=== PATIENT | male | born 1945 | race Caucasian/White ===

== ENCOUNTER 2019-03-29 05:48 | Day surgery (SDC) | payer OTHER ==
[~2019-03-29] VITALS: Ht 182.9 cm; Wt 103.4 kg
[~2019-03-29 05:48] MED LIST: APAP W/CODEINE1 TA2 PO; ASPIRIN81 M2 PO; AZITHROMYCIN 2250 MG PO; CELEXA 20 MG TA20 M1; EFFEXOR XR37.5 MG PO; FENOFIBRATE160 MG PO; FENOFIBRATE200 MG PO; HYDROCODON-ACE1 EAC7; LEVAQUIN 500 M500 MG PO; LIPITOR 20 MG T20 M1 PO; METFORMIN HCL500 MG PO; MOBIC15 MG PO; NEXIUM40 MG PO; OMEGA 3-6-9 11200 M1 PO; OMEPRAZOLE 20 M20 MG; PROMETHAZINE D480 ML GT; PROMETHAZINE D480 ML PO; TESSALON PERLE100 M1 PO; TRAMADOL 50 MG50 MG; TYLENOL W/CODEI1 TA2 PO
[2019-03-29 08:00] VITALS: BP 143/79
--- NOTE | 2019-04-02 16:20 | O ---
[facility] [place] [address] OPERATIVE REPORT Name: CRISTINA MULLINS Room #: DEP [facility].#: [id number] Admission: 03/29/19 ������������������ Attend Phys: Mehul Hu MD Discharge: 03/29/19 ������������������ Date of : 43 Report #: [id number] THIS REPORT FOR: //name// CC: Reggie Hu DATE OF SERVICE: 03/29/2019 SURGEON: Mehul Hu MD FITTING ROOM SUPERVISOR: None. PREOPERATIVE DIAGNOSIS: Bilateral lower lid ectropion. POSTOPERATIVE DIAGNOSIS: Bilateral lower lid ectropion. OPERATION PERFORMED: Bilateral lower lid ectropion repair. ANESTHESIA: Local with IV sedation. COMPLICATIONS: None. INDICATIONS FOR PROCEDURE: This patient has bilateral acquired lower lid ectropion with chronic tearing and discharge. The current procedures are undertaken in order to improve the patient's visual function, lacrimal outflow, and level of comfort. Informed consent was obtained to include but not limit to the risk of loss of vision, bleeding, infection, scarring, failure to improve the problem and need for further surgery. DESCRIPTION OF OPERATION: The patient was taken to the operating room where 2% Xylocaine with epinephrine mixed with equal parts of 0.75% Marcaine with Wydase was administered transcutaneously and transconjunctivally to each lower lid and lateral canthal area. The patient was then prepped and draped in the usual sterile fashion. A Rosalina clamp was then used to clamp the left lateral canthus following which a sharp canthotomy and cantholysis were performed. The tarsal strip was prepared laterally, removing the lash bearing portion of the redundant lid margin and the redundant tarsal plate. Hemostasis was achieved with a monopolar cautery, as it was throughout the case. The tarsal strip was then secured to the internal portion of the lateral orbital tubercle with two interrupted 5-0 Prolene sutures. The lateral canthal angle was sharply reformed as the subcutaneous structures and the skin were closed with multiple interrupted 6-0 plain gut sutures. Attention was then turned to the right side where the same procedure was [facility] [address] [place] [address] OPERATIVE REPORT Name: CRISTINA MULLINS Room #: DEP [facility].#: [id number] Admission: 03/29/19 ������������������ Attend Phys: Mehul Hu MD Discharge: 03/29/19 ������������������ Date of : 43 Report #: [id number] performed. The wounds were cleaned and dressed with ophthalmic antibiotic ointment. The patient was then transported to the recovery area, having tolerated the procedure well with no anesthetic or operative complications being noted. ��������������������������������������������� <ELECTRONICALLY SIGNED> ���������������������������������������� By: Mehul Hu MD ��������������������������������������������� 04/02/19 1620 [id number] Mehul Hu MD /nt
== END 2019-03-29 09:45 | disposition home or self-care (01) ==
LOC: OR 05:48 → TBA 05:48 → OR 09:10
DX: H02.102 Unspecified ectropion of right lower eyelid (principal); H02.105 Unspecified ectropion of left lower eyelid; E11.9 Type 2 diabetes mellitus without complications; F32.9 Major depressive disorder, single episode, unspecified; E78.5 Hyperlipidemia, unspecified; K21.9 Gastro-esophageal reflux disease without esophagitis; M19.90 Unspecified osteoarthritis, unspecified site; N40.0 Benign prostatic hyperplasia without lower urinary tract symptoms; Z98.890 Other specified postprocedural states; Z79.899 Other long term (current) drug therapy; Z79.82 Long term (current) use of aspirin; Z87.01 Personal history of pneumonia (recurrent)
CPT/HCPCS: 50010; 50101; 50386; 50398; 51636; 56527; 56531; 62110; 62850; 70005